=== PATIENT | male | born 1945 | race Caucasian/White ===

== ENCOUNTER → 2017-05-13 | Outpatient (CLI) | payer MEDICARE, OTHER | END | disposition home or self-care (01) | LOC: RAD 11:18 | DX: M25.461 Effusion, right knee (principal); M76.51 Patellar tendinitis, right knee; M17.11 Unilateral primary osteoarthritis, right knee ==

== ENCOUNTER 2017-10-18 03:03 | Inpatient (IN) | payer MEDICARE, OTHER ==
[2017-10-18] VITALS (8 sets, daily range): BP systolic 124–174; BP diastolic 61–90
[~2017-10-18] VITALS: Ht 182.8 cm; Wt 84.0 kg
--- NOTE | ~2017-10-18 | EKG ---
[place], [place] ELECTROCARDIOGRAM REPORT NAME: NISHANT ROUSE UNIT #: [id number] ROOM: 411 DOCTOR: ROBLES PATEL,BRENDA BIRTHDATE: [birth year] DOS: 10/18/2017 TIME: 0327 hours. IMPRESSION: 1. Sinus rhythm. 2. Abnormal R-wave progression. 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 BRENDA ARBOLEDA MD CM:EKGRPT:ELECTROCARDIOGRAM REPORT [id number] BRENDA ARBOLEDA MD
[2017-10-18] MEDS ORDERED: PRAVACHOL20 MG PO (03:07)
[2017-10-18] MEDS ORDERED: TOPROL XL50 M1 PO (03:08)
[2017-10-18] MEDS ORDERED: ASPIRIN CHEWABL81 MG PO (03:08)
[2017-10-18] MEDS ORDERED: VENLAFAXINE225 MG PO (03:09)
[2017-10-18] MEDS ORDERED: Wellbutrin Sr100 MG PO (03:09)
[2017-10-18] MEDS ORDERED: METFORMIN500 MG PO (03:09)
[2017-10-18] MEDS ORDERED: CO Q-1010 M2 PO (03:10)
[2017-10-18] MEDS ORDERED: IRON325 M1 PO (03:10)
[2017-10-18] MEDS ORDERED: NALTREXONE HCL50 MG PO (03:10)
[2017-10-18] MEDS ORDERED: VITAMIN B121000 MC1 PO (03:11)
[2017-10-18 03:37] LABS: BASO % 0.5 % (0.0-1.0); EOS # 0.2 10*3/uL (0.0-0.4); EOS % 3.9 % (1.0-4.0); HEMATOCRIT 37.2 % (42.0-52.0); HEMOGLOBIN 12.7 g/dl (14.0-18.0); LYMPH # 1.6 10*3/uL (1.3-4.4); LYMPH % 37.2 % (27.0-41.0); MEAN CELL VOLUME 93.9 fl (80.0-94.0); MEAN CORPUSCULAR HGB 32.1 pg (27.0-31.0); MEAN CORPUSCULAR HGB CONC 34.1 g/dl (33.0-37.0); MEAN PLATELET VOLUME 10.6 fl (9.6-12.3); MONO # 0.4 10*3/uL (0.1-1.0); MONO % 9.1 % (3.0-9.0); NEUT # 2.2 10*3/uL (2.3-7.9); NEUT % 49.1 % (47.0-73.0); PLATELET COUNT AUTOMATED 116 10*3/uL (130-400); RED BLOOD COUNT 3.96 10*6/uL (4.50-5.90); RED CELL DISTRI WIDTH 15.6 % (0-14.5); WHITE BLOOD COUNT 4.4 10*3/uL (4.8-10.8)
[2017-10-18 03:59] LABS: ALBUMIN 3.2 gm/dl (3.1-4.5); BUN 21 mg/dl (7-24); CHLORIDE 106 mmol/L (98-107); CREATININE 1.31 mg/dL (0.70-1.30); LIPASE 192 U/L (73-393); POTASSIUM 4.5 mmol/L (3.5-5.1); SGOT/AST 19 IU/L (3-35); SGPT/ALT 26 U/L (12-78); SODIUM 140 mmol/L (136-145); TOTAL PROTEIN 6.1 gm/dL (6.4-8.2)
[2017-10-18 04:00] LABS: ALKALINE PHOSPHATASE 67 U/L (45-117)
[2017-10-18 04:02] LABS: TROPONIN I < 0.015 ng/ml (<0.045)
--- NOTE | 2017-10-18 06:31 | NUR ---
REPORT FROM TEXTILE SCIENCE TECHNICIAN MINERVA
--- NOTE | 2017-10-18 06:49 | NUR ---
A 72, admitted to , under the services of SHAHRAM Blakely DO with a diagnosis of PARTIAL OBSTRUCTION ON SM BOWEL. Chief complaint is ABD PAIN. Patient arrived via stretcher from ER. Monitor applied. Initial assessment completed. Vital signs taken and recorded. SHAHRAM BLAKELY DO notified of admission to the unit. Orders received. See assessment for past medical history, medications and allergies. Patient and/or family oriented to unit. [facility] visitation policy reviewed. Clothing/patient valuable form completed. YESSENIA MELARA
--- NOTE | 2017-10-18 07:01 | NUR ---
MED REC COMPLETED BY LIST IN CELL PHONE PER MINERVA IN ER. PATIENT'S UNABLE TO FIND THE LIST ON THE PHONE AT THIS TIME
--- NOTE | 2017-10-18 07:02 | NUR ---
PATIENT CONFUSED TO PERSON PLACE AND TIME. GRABBING AT OBJECTS IN THE AIR. BED ALARM ON. AT BEDSIDE
--- NOTE | 2017-10-18 07:02 | NUR ---
UPON FURTHER ASSESSMENT PT STATES PAIN MEDS EFFECTIVE FOR PAIN
--- NOTE | 2017-10-18 08:00 | NUR ---
PT WAKES TO VOICE AND WHEN HE IS ASKED QUESTIONS HE STARTS MUMBLING AND FALLS BACK TO SLEEP, NG TUBE IS IN AND WE ARE AWAITING CHEST X-RAY FOR FURTHER ORDERS. NO S/S OF DISTRESS. SEE ASSESS. WILL CONT TO MONITOR. CALL LIGHT IN REACH. BED ALARM ON.
--- NOTE | 2017-10-18 08:27 | NUR ---
PHYSICAL THERAPY Nursing screen recieved. Not appropriate at this time. Small bowel obstructon and medically very ill. Please order when appropriate. Thank you. Mireille tellez,PT
--- NOTE | 2017-10-18 09:15 | NUR ---
SPOKE TO DR VICTOR AND NOTIFIED HIM OF CXR RESULTS. HE GAVE ORDER FOR NG TO BE CONNECTED TO LOW INTERMITTENT SX. WHEN I DID CONNECT I DID NOT GET OUT ANY FLUID.
[2017-10-18] MEDS ORDERED: EFFEXOR-XR75 MG PO (15:00)
--- NOTE | 2017-10-18 15:13 | NUR ---
IT WAS TOLD TO ME THIS MORNING THAT THE PT MED REC WAS UPDATED IN THE ER BY A LIST THAT WAS ON PT PHONE. PT IS NOW UNABLE TO PROVIDE THAT LIST DUE TO CONFUSION. [facility] CALL[facility] AND GOT CONFLICTING MEDS FROM BOTH PLACES. I DID PLACE A CALL TO THE TO SEE IF SHE COULD PROVIDE ME WITH A LIST SO I CAN FURTHER VERIFY MEDS.
[2017-10-18 16:20] LABS: BILIRUBIN NEGATIVE (NEGATIVE); BLOOD NEGATIVE (NEGATIVE); CLARITY CLEAR (CLEAR); COLOR YELLOW (YELLOW); GLUCOSE NEGATIVE (NEGATIVE); KETONE NEGATIVE (NEGATIVE); LEUKO ESTERASE NEGATIVE (NEGATIVE); NITRITE NEGATIVE (NEGATIVE); SPECIFIC GRAVITY <= 1.005 (1.005-1.030); UROBILINOGEN 0.2 E.U./dl (0.2-1.0)
[2017-10-18 16:28] LABS: BACTERIA TRACE; EPITHELIAL CELLS 0-2
[2017-10-18] MEDS ORDERED: Lopressor25 MG PO (16:45)
--- NOTE | 2017-10-18 16:55 | NUR ---
MED REC WAS UPDATED BASED ON COMPARING LISTS PROVIDED BY [facility], [facility].
--- NOTE | 2017-10-18 18:37 | NUR ---
DR VICTOR IN TO SEE PT AND HE REMOVED NG TUBE. HE STATED THAT HE WILL DO AN EGD ON HIM TOMORROW.
--- NOTE | 2017-10-18 18:45 | NUR ---
WAS NOTIFIED OF EGD TOMORROW.
--- NOTE | 2017-10-18 20:16 | NUR ---
PATIENT RESTING IN BED WITH EYES CLOSED. RESPS EASY AND REGULAR. EASILY ARROUSABLE. BED IN LOWEST POSITION, CALL LIGHT IN REACH
--- NOTE | 2017-10-18 20:34 | NUR ---
DR MENSAH AWARE OF PATIENT'S HOME MEDS NOT BEING CONTINUED. STATES HE WILL TAKE A LOOK AT THEM
--- NOTE | 2017-10-18 23:46 | NUR ---
24 HR chart check completed.
[2017-10-19] VITALS (9 sets, daily range): BP systolic 121–176; BP diastolic 66–88
--- NOTE | 2017-10-19 03:14 | NUR ---
PATIENT RESTING IN BED WITH NO S/S OF DISRESS. RESPS EASY AND REGULAR. BED IN LOWEST POSITION, BED ALARM ON, CALL LIGHT IN REACH
[2017-10-19 06:14] LABS: BASO % 0.5 % (0.0-1.0); EOS # 0.1 10*3/uL (0.0-0.4); EOS % 3.1 % (1.0-4.0); HEMATOCRIT 37.2 % (42.0-52.0); HEMOGLOBIN 12.5 g/dl (14.0-18.0); LYMPH # 1.2 10*3/uL (1.3-4.4); MEAN CELL VOLUME 94.4 fl (80.0-94.0); MEAN CORPUSCULAR HGB 31.7 pg (27.0-31.0); MEAN CORPUSCULAR HGB CONC 33.6 g/dl (33.0-37.0); MEAN PLATELET VOLUME 10.8 fl (9.6-12.3); MONO # 0.3 10*3/uL (0.1-1.0); MONO % 7.6 % (3.0-9.0); NEUT # 2.2 10*3/uL (2.3-7.9); NEUT % 56.5 % (47.0-73.0); PLATELET COUNT AUTOMATED 104 10*3/uL (130-400); RED BLOOD COUNT 3.94 10*6/uL (4.50-5.90); RED CELL DISTRI WIDTH 15.3 % (0-14.5); WHITE BLOOD COUNT 3.8 10*3/uL (4.8-10.8)
[2017-10-19 06:32] LABS: CHLORIDE 110 mmol/L (98-107); POTASSIUM 4.3 mmol/L (3.5-5.1); SODIUM 143 mmol/L (136-145)
[2017-10-19 06:45] LABS: ALBUMIN 2.9 gm/dl (3.1-4.5); ALKALINE PHOSPHATASE 64 U/L (45-117); BUN 12 mg/dl (7-24); CHOLESTEROL 116 mg/dL (<200); CREATININE 1.04 mg/dL (0.70-1.30); FREE T4 0.85 ng/dl (0.76-1.46); HDL CHOLESTEROL 67 mg/dl (40-60); LDL CHOLESTEROL 36 mg/dL (9-159); PHOSPHOROUS 3.3 mg/dL (2.5-4.9); SGOT/AST 18 IU/L (3-35); SGPT/ALT 22 U/L (12-78); THYROID STIM HORMONE (HS) 0.754 uIU/ml (0.358-4.75); TOTAL PROTEIN 5.4 gm/dL (6.4-8.2); TRIGLYCERIDES 64 mg/dl (<150); VLDL CHOLESTEROL 13 mg/dL (6-40)
--- NOTE | 2017-10-19 08:00 | NUR ---
IN BED AWAKE ALERT AND ORIENTED X3, NO S/S OF DISTRESS. DENIES ANY C/O. SEE ASSESS. WILL CONT TO MONITOR. CALL LIGHT IN REACH.
--- NOTE | 2017-10-19 08:30 | NUR ---
Brake Operator Sheet Metal in to see pt. Patient is off floor having an EGD. Will follow up later.
[2017-10-19 08:40] LABS: VITAMIN D, 25-HYDROXY 36.8 ng/mL (30-100)
--- NOTE | 2017-10-19 08:40 | NUR ---
PT WENT DOWN TO SURGERY FOR EGD
--- NOTE | 2017-10-19 10:50 | NUR ---
PT RETURNED FROM EGD.
--- NOTE | 2017-10-19 13:19 | NUR ---
Biofuels Production Associate in to see pt. Family at beside, states he went down for a test.
--- NOTE | 2017-10-19 14:03 | NUR ---
SPOKE TO DR VICTOR AND HE CLARIFIED THAT PT MAY RESTART CLEAR LIQUID DIET SINCE THE ABDOMINAL SERIES IS DONE.
--- NOTE | 2017-10-19 15:40 | NUR ---
PT RETURNED FROM SMALL BOWEL SERIES AND WILL GO BACK DOWN AT 16:20 TO SEE IF THE PREP HAS MOVED.
--- NOTE | 2017-10-19 15:44 | NUR ---
RETURNED AT THIS TIME FROM SMALL BOWEL SERIES.
--- NOTE | 2017-10-19 16:18 | NUR ---
PT WENT BACK DOWN TO RADIOLOGY AT THIS TIME TO TAKE MORE PHOTOS.
--- NOTE | 2017-10-19 16:45 | NUR ---
JUST RECEIVED CALL FROM RADIOLOGY THAT PT IS COMING BACK UP TO FLOOR AND THAT HE WILL NOT BE ABLE TO EAT BECAUSE THE PREP HAS NOT MOVED. THEY WILL SCAN HIM AGAIN AND 11PM AND 8AM. HE WILL REMAIN NPO.
--- NOTE | 2017-10-19 16:58 | NUR ---
PT REQUESTED HIS MEDS BECAUSE HE IS STARTING TO GET A SWOOSHING SOUNDS IN HIS EARS FROM NOT HAVING THEM. I NOTIFIED DR CLACNY AND HE STATED THAT HE WON'T BE ABLE TO HAVE ANYTHING UNTIL AFTER HIS PROCEDURE IS COMPLETE AND TO JUST MONITOR HIS SYMPTOMS.
--- NOTE | 2017-10-19 19:20 | NUR ---
PT. AWAKE, ALERT, AND ORIENTED X 3. PT. IN BED AT THIS TIME. PT. LUNGS CLEAR T/O, DENIES SOB ON RA. HRR, PPP, NO EDEMA, DENIES CP. BOWEL SOUNDS HYPOACTIVE, PT. DENIES ABD. PAIN AT THIS TIME, DENIES N/V/D AT THIS TIME. PT. IS AMBULATORY WITH STEADY GAIT, SKIN W/D/I. CALL LIGHT WITHIN REACH, BED IN LOWEST POSITION, WHEELS LOCKED.
[2017-10-20] VITALS: BP 144/78
[2017-10-20 06:22] LABS: BUN 8 mg/dl (7-24); CHLORIDE 110 mmol/L (98-107); CREATININE 0.89 mg/dL (0.70-1.30); SODIUM 143 mmol/L (136-145)
[2017-10-20 06:25] LABS: BASO % 0.6 % (0.0-1.0); EOS # 0.1 10*3/uL (0.0-0.4); EOS % 3.9 % (1.0-4.0); HEMATOCRIT 35.1 % (42.0-52.0); HEMOGLOBIN 11.7 g/dl (14.0-18.0); LYMPH # 1.4 10*3/uL (1.3-4.4); LYMPH % 38.2 % (27.0-41.0); MEAN CELL VOLUME 92.9 fl (80.0-94.0); MEAN CORPUSCULAR HGB CONC 33.3 g/dl (33.0-37.0); MEAN PLATELET VOLUME 10.8 fl (9.6-12.3); MONO # 0.3 10*3/uL (0.1-1.0); MONO % 8.9 % (3.0-9.0); NEUT # 1.7 10*3/uL (2.3-7.9); NEUT % 48.1 % (47.0-73.0); PLATELET COUNT AUTOMATED 105 10*3/uL (130-400); RED BLOOD COUNT 3.78 10*6/uL (4.50-5.90); RED CELL DISTRI WIDTH 15.2 % (0-14.5); WHITE BLOOD COUNT 3.6 10*3/uL (4.8-10.8)
[2017-10-20 08:00] VITALS: BP 180/80; BP 180/94
--- NOTE | 2017-10-20 09:19 | NUR ---
AWAITING RESULTS FROM SMALL BOWEL FOLLOW THRU. PT REMAINS NPO.
--- NOTE | 2017-10-20 10:49 | NUR ---
Gun Stock Checker in to talk to patient. Patient states lives at home with . There are few steps in the home. Physician: [facility] [place] [facility] Patient's level of ADLs: INDEPENDENT Patient has working utilities: yes DME: no Follow-up physician's appointment after d/c: will be made by the hospitalist nurse director upon discharge Does patient want to access PORTAL?: yes Discharge plan discussed with patient. He lives at home with his . He is independent in his ADLs and ambulation. There are a few steps in the home that lead upstairs but he doesn't use them as he stays on the first floor. Denies any needs or requests at this time. When medically stable he will return home. NASIM SPEAR
[2017-10-20 12:00] VITALS: BP 170/78
--- NOTE | 2017-10-20 14:05 | NUR ---
Discharge instructions reviewed with patient/family. Patient receptive and verbalizes understanding. Follow-up care arranged. Written instructions given to patient/family. CATHIE SHULTZ
== END 2017-10-20 14:05 | disposition home or self-care (01) | DRG 388 ==
LOC: ED 03:03 → EDHOLD 06:15 → 4E 06:15
PROVIDERS: Emergency Medicine Emergency Medical Services; Family Medicine; Student in an Organized Health Care Education/Training Program; ADMIT Student in an Organized Health Care Education/Training Program
PROC: 0D9670Z Drainage of Stomach with Drainage Device, Via Natural or Artificial Opening (ICD-10-PCS; principal; 2017-10-18)
PROC: 0DJ08ZZ Inspection of Upper Intestinal Tract, Via Natural or Artificial Opening Endoscopic (ICD-10-PCS; 2017-10-19)
DX: K56.600 Partial intestinal obstruction, unspecified as to cause (principal); N17.0 Acute kidney failure with tubular necrosis; E44.0 Moderate protein-calorie malnutrition; D69.6 Thrombocytopenia, unspecified; E83.41 Hypermagnesemia; F33.40 Major depressive disorder, recurrent, in remission, unspecified; D64.9 Anemia, unspecified; E11.9 Type 2 diabetes mellitus without complications; D72.819 Decreased white blood cell count, unspecified; I10 Essential (primary) hypertension; E78.5 Hyperlipidemia, unspecified; Z98.890 Other specified postprocedural states; Z88.7 Allergy status to serum and vaccine; Z88.1 Allergy status to other antibiotic agents; Z91.030 Bee allergy status; Z95.1 Presence of aortocoronary bypass graft; Z87.891 Personal history of nicotine dependence; Z82.49 Family history of ischemic heart disease and other diseases of the circulatory system; Z80.1 Family history of malignant neoplasm of trachea, bronchus and lung; Z79.82 Long term (current) use of aspirin; Z79.84 Long term (current) use of oral hypoglycemic drugs; Z79.899 Other long term (current) drug therapy; Z68.27 Body mass index [BMI] 27.0-27.9, adult

== ENCOUNTER → 2019-07-23 | Outpatient (CLI) | payer OTHER ==
[~2019-07-23] MED LIST: ASPIRIN CHEWABL81 MG PO; CO Q-1010 M2 PO; DOXYCYCLINE100 M3 PO; EFFEXOR-XR75 MG PO; IRON325 M1 PO; Lopressor25 MG PO; METFORMIN500 MG PO; NALTREXONE HCL50 MG PO; PRAVACHOL20 MG PO; TOPROL XL50 M1 PO; VENLAFAXINE225 MG PO; VITAMIN B121000 MC1 PO; Wellbutrin Sr100 MG PO
== END | disposition home or self-care (01) ==
LOC: CT 09:58
DX: R19.03 Right lower quadrant abdominal swelling, mass and lump (principal); E11.9 Type 2 diabetes mellitus without complications

== ENCOUNTER 2025-10-25 11:32 | Emergency (ER) | payer MEDICARE ==
[~2025-10-25] VITALS: Ht 172.7 cm; Wt 68.0 kg
[2025-10-25 12:04] LABS: BASO # 0.0 10*3/uL (0.0-0.1); BASO % 1.0 % (0.0-1.0); EOS # 0.2 10*3/uL (0.0-0.4); EOS % 4.4 % (1.0-4.0); MEAN CELL VOLUME 101.4 fl (80.0-94.0); MEAN CORPUSCULAR HGB 34.3 pg (27.0-31.0); MEAN PLATELET VOLUME 9.0 fl (9.6-12.3); MONO # 0.4 10*3/uL (0.1-1.0); MONO % 9.4 % (3.0-9.0); NEUT # 2.6 10*3/uL (2.3-7.9); NEUT % 63.8 % (47.0-73.0); NUCLEATED RED BLOOD CELL 0.0 % (0.0-0.0); NUCLEATED RED BLOOD CELL 0.0 10*3/uL (0.0-0.0); PLATELET COUNT AUTOMATED 125 10*3/uL (130-400); RED CELL DISTRI WIDTH 12.1 % (0-14.5)
[2025-10-25 12:20] LABS: ACT PARTIAL THROMBO TIME 27.4 SECONDS (20.0-32.1)
[2025-10-25 12:29] LABS: BUN 16 mg/dl (9-23); SGPT/ALT 88 U/L (5-49)
[2025-10-25] MEDS ORDERED: Phenylephrine HydrochloridE 0.5% NASAL 15 ML BOTTLE NAS ONE (12:40)
== END 2025-10-25 14:48 | disposition home or self-care (01) ==
LOC: ED 11:32
PROVIDERS: Nurse Practitioner Family
DX: R04.0 Epistaxis (principal); I10 Essential (primary) hypertension; E11.9 Type 2 diabetes mellitus without complications; F32.A Depression, unspecified; E78.5 Hyperlipidemia, unspecified; Z98.84 Bariatric surgery status; Z98.61 Coronary angioplasty status; Z91.030 Bee allergy status; Z88.1 Allergy status to other antibiotic agents; Z88.7 Allergy status to serum and vaccine; Z79.899 Other long term (current) drug therapy; Z79.82 Long term (current) use of aspirin; Z87.891 Personal history of nicotine dependence

== ENCOUNTER 2025-11-06 12:54 | Inpatient (IN) | payer MEDICARE ==
[~2025-11-06] VITALS: Ht 172.7 cm; Wt 69.9 kg
[~2025-11-06 12:54] MED LIST changes: -PRAVACHOL20 MG PO; +PRAVASTATIN SOD40 MG PO
[2025-11-06 13:05] VITALS: BP 138/72
[2025-11-06] MEDS ORDERED: SODIUM CHLORIDE 0.9% 1,000 ML IV ONE (13:25)
[2025-11-06 13:37] LABS: BASO # 0.0 10*3/uL (0.0-0.1); BASO % 1.2 % (0.0-1.0); EOS # 0.1 10*3/uL (0.0-0.4); EOS % 3.5 % (1.0-4.0); MEAN CELL VOLUME 102.7 fl (80.0-94.0); MEAN CORPUSCULAR HGB 33.7 pg (27.0-31.0); MEAN PLATELET VOLUME 9.2 fl (9.6-12.3); MONO # 0.3 10*3/uL (0.1-1.0); MONO % 10.9 % (3.0-9.0); NEUT # 1.5 10*3/uL (2.3-7.9); NEUT % 58.6 % (47.0-73.0); NUCLEATED RED BLOOD CELL 0.0 % (0.0-0.0); NUCLEATED RED BLOOD CELL 0.0 10*3/uL (0.0-0.0); PLATELET COUNT AUTOMATED 146 10*3/uL (130-400); RED CELL DISTRI WIDTH 12.9 % (0-14.5)
[2025-11-06 13:48] LABS: ACT PARTIAL THROMBO TIME 27.0 SECONDS (20.0-32.1)
[2025-11-06 14:02] LABS: BUN 23 mg/dl (9-23); SGPT/ALT 774 U/L (5-49)
[2025-11-06] MEDS ORDERED: IOHEXOL 300 MG/ML 100 ML VIAL IV ONE (14:30)
[2025-11-06 14:42] LABS: BILIRUBIN 2+ (Negative); BLOOD Negative (Negative); CLARITY Cloudy (Clear); COLOR Dark Yellow (Yellow); KETONE Trace (Negative); LEUKO ESTERASE Trace (Negative); NITRITE Negative (Negative); PH 6.0 (4.5-8.0); SPECIFIC GRAVITY 1.025 (1.001-1.030); UROBILINOGEN 4.0 E.U./dl (0.0-1.0)
[2025-11-06 15:09] LABS: BACTERIA 1+; CALCIUM OXALATE CRYSTALS 2+; MUCOUS TRACE
[2025-11-06 15:10] LABS: HYALINE CAST 0-2
[2025-11-06 19:01] VITALS: BP 140/72
[2025-11-06] MEDS ORDERED: ELIQUIS5 M1 PO (21:50)
[2025-11-06] MEDS ORDERED: PLAVIX75 M1 PO (21:51)
[2025-11-06] MEDS ORDERED: Acetaminophen/Hydrocodone 5 MG/325 MG TABLET PO PRN (22:20)
[2025-11-06] MEDS ORDERED: BISACODYL 10 MG SUPP R PRN (22:20)
[2025-11-06] MEDS ORDERED: Ondansetron Hydrochloride 4 MG/2 ML VIAL IV PRN (22:20)
[2025-11-06] MEDS ORDERED: ACETAMINOPHEN 325 MG TAB PO PRN (22:20)
[2025-11-06] MEDS ORDERED: BISACODYL 5 MG TAB PO PRN (22:20)
[2025-11-06] MEDS ORDERED: ACETAMINOPHEN 650 MG SUPP R PRN (22:20)
[2025-11-07 02:51] VITALS: BP 134/82
[2025-11-07 05:33] LABS: BUN 18 mg/dl (9-23); FREE T4 1.44 ng/dl (0.89-1.76); LDL CHOLESTEROL 83 mg/dL (9-159); SGPT/ALT 641 U/L (5-49)
[2025-11-07 05:58] VITALS: BP 146/72
[2025-11-07 06:12] LABS: BASO # 0.0 10*3/uL (0.0-0.1); BASO % 1.3 % (0.0-1.0); EOS # 0.1 10*3/uL (0.0-0.4); EOS % 3.9 % (1.0-4.0); MEAN CELL VOLUME 99.7 fl (80.0-94.0); MEAN CORPUSCULAR HGB 33.1 pg (27.0-31.0); MEAN PLATELET VOLUME 9.7 fl (9.6-12.3); MONO # 0.4 10*3/uL (0.1-1.0); MONO % 11.3 % (3.0-9.0); NEUT # 1.8 10*3/uL (2.3-7.9); NEUT % 56.7 % (47.0-73.0); NUCLEATED RED BLOOD CELL 0.0 % (0.0-0.0); NUCLEATED RED BLOOD CELL 0.0 10*3/uL (0.0-0.0); PLATELET COUNT AUTOMATED 150 10*3/uL (130-400); RED CELL DISTRI WIDTH 12.9 % (0-14.5)
[2025-11-07 06:46] LABS: VITAMIN D, 25-HYDROXY 50.4 ng/mL (30-100)
== END 2025-11-07 07:19 | disposition short-term general hospital (02) | DRG 445 ==
LOC: ED 12:54 → EDHOLD 21:28
PROVIDERS: Internal Medicine; Student in an Organized Health Care Education/Training Program; ADMIT Family Medicine; ATTEND Family Medicine
DX: K82.8 Other specified diseases of gallbladder (principal); E44.0 Moderate protein-calorie malnutrition; J90 Pleural effusion, not elsewhere classified; Z68.44 Body mass index [BMI] 60.0-69.9, adult; R74.01 Elevation of levels of liver transaminase levels; D72.819 Decreased white blood cell count, unspecified; I25.10 Atherosclerotic heart disease of native coronary artery without angina pectoris; I10 Essential (primary) hypertension; I48.91 Unspecified atrial fibrillation; F41.1 Generalized anxiety disorder; E78.2 Mixed hyperlipidemia; D72.810 Lymphocytopenia; D53.9 Nutritional anemia, unspecified; R73.9 Hyperglycemia, unspecified; R82.71 Bacteriuria; E80.6 Other disorders of bilirubin metabolism; Z88.7 Allergy status to serum and vaccine; Z88.8 Allergy status to other drugs, medicaments and biological substances; Z88.9 Allergy status to unspecified drugs, medicaments and biological substances; Z79.899 Other long term (current) drug therapy; Z79.01 Long term (current) use of anticoagulants; Z79.2 Long term (current) use of antibiotics; Z79.82 Long term (current) use of aspirin; Z98.84 Bariatric surgery status; Z95.1 Presence of aortocoronary bypass graft; Z85.118 Personal history of other malignant neoplasm of bronchus and lung; Z87.891 Personal history of nicotine dependence; Z82.49 Family history of ischemic heart disease and other diseases of the circulatory system; Z80.1 Family history of malignant neoplasm of trachea, bronchus and lung